=== PATIENT | female | born 1975 | race Hispanic/Latino ===

== ENCOUNTER 2016-10-16 22:12 | Emergency (ER) | payer OTHER ==
[~2016-10-16] VITALS: Ht 154.9 cm; Wt 81.6 kg
[~2016-10-16 22:12] MED LIST: ADVAIR HFA 230-12 GM INH; ADVAIR INH; ALBUTEROL SULFAT3 M1 INH; ATIVAN0.5 MG PO; CENTRUM1 TA1 PO; IBUPROFEN800 M1 PO; L-LYSINE1000 M1 PO; PRILOSEC 20MG C20 MG PO; PROAIR HFA8.5 GM INH; SERTRALINE HCL25 MG PO; SERTRALINE HYDR50 MG PO; TUMS500 MG PO; VENTOLIN H0.09 MG/Ac INH; [UNRECOGNIZED DRUG - OTHER] INH
--- NOTE | 2016-10-16 22:31 | ED CARDIAC/CP/PALPITATIONS ---
History of Present Illness General Chief Complaint: Chest Pain Stated Complaint: CHEST PRESSURE, "FEELS LIKE SOMETHING SITTING" Source: patient, old records Exam Limitations: no limitations Vital Signs & Intake/Output Vital Signs & Intake/Output Vital Signs Date Time Temp Pulse Resp B/P Pulse O2 O2 Flow FiO2 Ox Delivery Rate 10/16 2311 Room Air 10/16 2222 97.7 72 18 135/86 98 Room Air ED Intake and Output 10/17 0000 10/16 1200 Intake Total 50 Output Total Balance 50 Intake, IV 50 Patient 180 lb Weight Allergies Coded Allergies: latex (HIVES 03/15/16) Reconcile Medications Albuterol Sulfate (Proair Hfa) 8.5 GM HFA.AER.AD 2 PUF INH Q4-6 PRN PRN ASTHMA (Reported) Calcium Carbonate (Tums) 500 MG CTB 1 TAB PO PRN GI (Reported) Famotidine (Pepcid) 20 MG TABLET 1 TAB PO DAILY GASTRITIS Fluticasone Propionate/Salme (Advair Hfa 230-21 Mcg Inhaler) 12 GM HFA.AER.AD 2 PUFF INH BID ASTHMA (Reported) Ibuprofen 800 MG TABLET 1-2 TAB PO PRN MENSTRUAL CRAMPS (Reported) Lorazepam (Ativan) 0.5 MG TAB 1 TAB PO PRN ANXIETY (Reported) Lysine HCl (L-Lysine) 1,000 MG TABLET 1 TAB PO PRN SUPPLEMENT (Reported) Multivitamins (Centrum) 1 TAB TAB 1 TAB PO DAILY SUPPLEMENT (Reported) Sertraline HCl 25 MG TABLET 3 TAB PO DAILY PANIC DISORDER (Reported) Triage Note: PT TO ED C/O BURNING PAIN TO UPPER ABDOMEN THAT WENT UP INTO CENTER CHEST WHILE WATCHING TV IN BED "I THOUGHT I ATE TOO MUCH" C/O +NAUSEA AND DIZZINESS. "I CAN'T CATCH MY BREATH" PAIN WORSE WHEN SITTING AND WALKING. "IT FEELS LIKE SOMETHING IS SITTING ON MY CHEST" TOOK ATIVAN AND TUMS WITH NO RELIEF./ PMH OF ANXIETY Triage Nurses Notes Reviewed? yes Onset: Abrupt Duration: hour(s): (2), constant Timing: recent history Quality/Severity: moderate, aching Location: epigastric Radiation: substernal Activities at Onset: S/P EATING JR MAC AT [employer] Nitro Today/Relief: no nitro taken today Aspirin Today: no aspirin today Associated Symptoms: NAUSEA DYSPNEA : No Patient currently breastfeeds: No HPI: 41-year-old female with history of asthma and anxiety presents complaining of burning epigastric abdominal pain radiating substernally for the past 2 hours. The patient states that she had a miguel piggyback for [employer] earlier tonight and that while laying down in bed she began to have the symptoms. The patient states that she was feeling short of breath and was scared she was developing a panic attack for which she took one Ativan without improvement. She then took a Tums without subsequent improvement and came to the ER. She reports positive nausea however denies vomiting diarrhea. She denies any other abdominal pain no right upper quadrant pain and no back pain no cough fever or chills no sick contacts. Patient has been seen in the past for similar symptoms. The pain is not worse with inspiration no hemoptysis no leg pain no recent travel or immobility Past History Travel History Traveled to [place] past 21 day No Medical History Any Pertinent Medical History? see below for history Neurological: NONE EENT: NONE Cardiovascular: NONE Respiratory: asthma Gastrointestinal: GERD Hepatic: NONE Renal: NONE Musculoskeletal: NONE Psychiatric: anxiety Endocrine: NONE Surgical History Surgical History: N Psychosocial History What is your primary language Icelandic Tobacco Use: Quit >30 days ago ETOH Use: occasional use Illicit Drug Use: denies illicit drug use Family History Hx Contributory? No Review of Systems Review of Systems Constitutional: Reports: see HPI. All Other Systems: Reviewed and Negative Comments Review of systems: See HPI, All other systems negative. Constitutional, no chills no fever, no malaise HEENT: No visual changes no sore throat no congestion, Cardiovascular: chest pain , no palpitation Skin,no rashes, no change in skin Respiratory: dyspnea no cough no sputum GI: nausea no vomiting, no diarrhea, : No dysuria Muscle skeletal: No joint pain, no joint swelling, no back pain, no neck pain, Neurologic: No numbness no headache Psych: No stress no anxiety Heme/endocrine: No bruising no bleeding Immunology: No lymphadenopathy Physical Exam Physical Exam General Appearance: well developed/nourished, alert, awake Cardiovascular: regular rate/rhythm Comments: Well-developed well-nourished person in no acute distress HEENT: Normal EENT exam; PERRL, EOMI, HEAD is atraumatic. moist mucous membranes. Neck: Supple, normal range of motion Back: Nontender, no CVA tenderness. Full range of motion Cardiovascular: Regular rate and rhythms no murmurs rubs Respiratory: Chest tender.There were no bony deformities, no asymmetry. No respiratory distress. Patient speaking in full complete sentences. Breath sounds clear to auscultation bilaterally: NO W/R/R Abdomen: Soft, tender to palpation over the epigastrium, negative Rosales's sign and no right upper quadrant tenderness nondistended, no appreciable organomegaly. Normal bowel sounds. No rebound/guarding, Extremity: No edema, full range of motion of extremities Neuro: Alert oriented x3, motor sensory normal, There were no obvious focal neurologic abnormalities. Skin: No appreciable rash on exposed skin, skin is warm and dry. Psych: Mood and affect is normal, memory and judgment is normal. Core Measures ACS in differential dx? Yes Severe Sepsis Present: No Septic Shock Present: No All Positive = PERC Ruled Out: Positive: age < 50 years, heart rate < 100 bpm, O2 sat > 94%, no hemoptysis, no hormone use, no prior DVT or PE, no unilateral leg swellin, no surgery/trauma w/ in 4w. Progress Differential Diagnosis: AMI, aortic dissection, atrial fibrillation, cholecystitis, CHF/pulm edema, hypovolemia, musculoskeletal pain, myocarditis, pancreatitis, pericarditis, pneumonia, pneumothorax, pulmonary embolism, PUD/ GERD, PVCs/PACs, GASTRITIS, CHOLELITHIASIS Plan of Care: Orders Procedure Date/time Status Saline Lock 10/16 2240 Active Telemetry/Testing Engineer 10/16 2240 Active TROPONIN LEVEL 10/16 2240 Active LIPASE 10/16 2240 Active HUMAN BETA HCG SCREEN 10/16 2240 Active COMPREHENSIVE METABOLIC PANEL 10/16 2240 Active CBC WITHOUT DIFFERENTIAL 10/16 2240 Complete AMYLASE 10/16 2240 Active EKG 10/163 Active Laboratory Tests 10/16/16 2334: Anion Gap 10, Estimated GFR > 60, BUN/Creatinine Ratio 17.1, Glucose 103 H, Calcium 9.8, Total Bilirubin 0.4, AST 27, ALT 41, Alkaline Phosphatase 66, Troponin I Pending, Total Protein 7.2, Albumin 4.1, Globulin 3.1, Albumin/ Globulin Ratio 1.3, Amylase 57, Lipase 131, Total Beta HCG NEGATIVE, CBC w Diff NO MAN DIFF REQ, RBC 4.85, MCV 84.6, MCH 28.1, RDW 13.4, MPV 9.1, Gran % 70.1, Lymphocytes % 17.6 L, Monocytes % 7.9, Eosinophils % 4.0, Basophils % 0.4, Absolute Granulocytes 8.5 H, Absolute Lymphocytes 2.1, Absolute Monocytes 1.0 H, Absolute Eosinophils 0.5, Absolute Basophils 0, PUBS MCHC 33.3 10/16/16 2242: Troponin I Cancelled Labs ordered old records reviewed patient medicated with GI cocktail Zofran and Pepcid IV. Pain is reproducible over the epigastrium given patient recently eating [employer] prior to the episode beginning symptoms are consistent with a gastritis. PERC CRITERIA WELLS CRITERIA 0. Case discussed with Dr. Kemp will continue to monitor On repeat evaluation patient reports no improvement with GI cocktail 2340 PT reports to feeling improved with the pepcid, pending labs 10/17/2016 12:23:14 AM discussed with the patient at length all of her lab results to date she reports she is feeling improved resting comfortably normal sinus on the monitor On repeat evaluation patient reports symptoms have improved's cussed with her her repeat troponin and need for close follow-up with her primary care physician as well as GI. Prescription for Pepcid was provided she feels comfortable with this plan ([facility]) Initial ED EKG: NSR AT 80, NO ACUTE ST SEG CHANGES, NORMAL AXIS Prior EKG: unchanged (03/15/16) Departure Departure Disposition: HOME OR SELF CARE Condition: Stable Clinical Impression Primary Impression: Atypical chest pain Secondary Impressions: Gastritis Referrals: NATA HUANG,FERNANDO Paz (PCP/Family) Additional Instructions: BLAND DIET, PEPCID DIRECTED. FOLLOW UP WITH YOUR PRIMARY CARE PHYSICIAN AND RETAIL SHIFT SUPERVISOR THIS WEEK. RETURN AT ANYTIME SOONER WITH ANY CONCERNS Departure Forms: Customer Survey General Discharge Information Prescriptions: Current Visit Scripts Famotidine (Pepcid) 1 TAB PO DAILY #14 TAB Critical Care Note Critical Care Note Critical Care Time: non-applicable
[2016-10-16 23:43] LABS: ABSOLUTE BASOPHIL COUNT 0 /CUMM (0.0-0.2); ABSOLUTE EOSINOPHIL COUNT 0.5 /CUMM (0.0-0.7); ABSOLUTE GRANULOCYTE CT 8.5 /CUMM (1.4-6.5); ABSOLUTE LYMPH COUNT 2.1 /CUMM (1.2-3.4); BASOPHIL % 0.4 % (0.0-2.0); GRANULOCYTE % 70.1 % (42.2-75.2); MEAN CORPUSCULAR HGB 28.1 PG (27.0-31.0); MEAN CORPUSCULAR HGB CONC 33.3 G/DL (33.0-37.0); MEAN CORPUSCULAR VOLUME 84.6 FL (81.0-99.0); MEAN PLATELET VOLUME 9.1 FL (7.4-10.4); PLATELET COUNT 334 /CUMM (130-400); RBC DISTRIBUTION WIDTH 13.4 % (11.5-14.5); RED BLOOD CELL CT 4.85 /CUMM (4.20-5.40); WHITE BLOOD CELL COUNT 12.1 /CUMM (4.8-10.8)
[2016-10-17] MEDS ORDERED: PEPCID20 M1 PO (00:15)
[2016-10-17 00:37] VITALS: BP 116/64
== END 2016-10-17 00:38 ==
LOC: ERH 22:12
PROVIDERS: Physician Assistant Medical
DX: R07.89 Other chest pain (principal); K29.70 Gastritis, unspecified, without bleeding
CPT/HCPCS: 93005; 93010; 96374; 96375; J2405

== ENCOUNTER 2018-01-05 13:15 | Emergency (ER) | payer OTHER ==
[~2018-01-05] VITALS: Ht 154.9 cm; Wt 79.4 kg
[~2018-01-05 13:15] MED LIST changes: +ALBUTEROL2.5 MG/0.5 INH/SOL; +ATIVAN1 M1 PO; +CENTRUM ADULTS1 EACH PO; -CENTRUM1 TA1 PO; +DOCUSATE SODIU100 M3 PO; +PEPCID20 M1 PO; +PERCOCET 5-3251 EACH PO; +VITAMIN D31000 UNI1 PO
--- NOTE | 2018-01-05 13:27 | ED DYSPNEA/ASTHMA COMPLAINT ---
History of Present Illness General Chief Complaint: Wheezing/Asthma Stated Complaint: ASTHMA Source: patient, old records Exam Limitations: no limitations Vital Signs & Intake/Output Vital Signs & Intake/Output Vital Signs Date Time Temp Pulse Resp B/P B/P Pulse O2 O2 Flow FiO2 Mean Ox Delivery Rate 01/05 1426 98 Room Air 01/05 1426 98.0 80 20 120/80 98 Room Air 01/05 1341 98 01/05 1318 97.6 78 22 127/87 96 Room Air Allergies Coded Allergies: latex (HIVES 03/15/16) Reconcile Medications Albuterol Sulfate (Proair Hfa) 8.5 GM HFA.AER.AD 2 PUF INH Q4-6 PRN PRN ASTHMA (Reported) Cholecalciferol (Vitamin D3) (Vitamin D3) 1,000 UNIT CAPSULE 1 CAP PO DAILY SUPP (Reported) Docusate Sodium 100 MG CAPSULE 100 MG PO BID CONSTIPATION Fluticasone Propionate/Salme (Advair Hfa 230-21 Mcg Inhaler) 12 GM HFA.AER.AD 2 PUFF INH BID ASTHMA (Reported) Ibuprofen 800 MG TABLET 1-2 TAB PO PRN MENSTRUAL CRAMPS (Reported) Ipratropium/Albuterol Sulfate (Iprat-Albut 0.5-3(2.5) MG/3 Ml) 0.5 MG-3 MG (2.5 MG BASE)/3 ML AMPUL.NEB 3 ML INH Q6HR PRN WHEEZING LORazepam (Ativan) 1 MG TAB 1 TAB PO BID PANIC (Reported) Methylprednisolone. (Medrol) 4 MG TAB.DS.PK 1 DP PO AD asthma 6 on day 1 then reduce by one tablet daily until gone Multivitamin/Iron/Folic Acid (Centrum Adults Tablet) 18 MG IRON-400 MCG TABLET 1 TAB PO DAILY VITAMIN SUPPORT (Reported) Oxycodone HCl/Acetaminophen (Percocet 5-325 MG Tablet) 5 MG-325 MG TABLET 1 TAB PO Q4P PRN PAIN SCALE 7-10 (SEVERE) Sertraline HCl 25 MG TABLET 3 TAB PO DAILY PANIC DISORDER (Reported) Triage Note: REQUESTING EVALUATION SECONDARY TO DIFF BREATHING. AUDIBLE WHEEZING NOTED AT TRIAGE. HX OF ASTHMA. HAVING DIFFICULTY COMPLETING SENTENC ES Triage Nurses Notes Reviewed? yes Onset: Abrupt Duration: day(s): (2), constant Timing: recent history Severity: moderate Activities at Onset: none Prior Episodes/Possible Cause: frequent episodes Associated Symptoms: cough : No Patient currently breastfeeds: No HPI: 42-year-old female history of asthma presents to the ER for evaluation complaining of shortness of breath wheezing that she states she attributes to her allergies. She has history of similar episodes in the past. She's been using her inhaler and nebulizers without improvement. She just finished a course of prednisone for 5 days secondary to her allergies. There is a nonproductive cough, no fever no chills no chest pain abdominal pain nausea vomiting. Past History Travel History Traveled to [place] past 21 day No Medical History Any Pertinent Medical History? 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 No Review of Systems Review of Systems Constitutional: Reports: see HPI. Comments Review of systems: See HPI, All other systems negative. Constitutional, no chills no fever, HEENT: no sore throat no congestion, no ear pain Cardiovascular: No chest pain , no palpitation Skin: no rashes, no change in skin Respiratory: no cough no sputum GI: No nausea no vomiting, no diarrhea, Muscle skeletal: No joint pain, no back pain Neurologic: , no headache Heme/endocrine: No bruising Immunology: No lymphadenopathy Physical Exam Physical Exam General Appearance: well developed/nourished, awake Respiratory: decreased breath sounds, wheezing Comments: Well-developed well-nourished person in no acute distress HEENT: Normal EENT exam; PERRL, EOMI, HEAD is atraumatic. moist mucous membranes. Neck: Supple, normal range of motion Back: Nontender, no CVA tenderness. Full range of motion Cardiovascular: Regular rate and rhythms no murmur Respiratory: Mild respiratory distress. Patient speaking in full complete sentences. Breath sounds clear to auscultation bilaterally: NO W/R/R decreased breath sounds no wheezing no rhonchi no rales Extremity: No edema, full range of motion of extremities Neuro: Alert oriented x3, motor sensory normal, There were no obvious focal neurologic abnormalities. Skin: No appreciable rash on exposed skin, skin is warm and dry. Psych: Mood and affect is normal, memory and judgment is normal. Core Measures ACS in differential dx? No CVA/TIA Diagnosis No Sepsis Present: No Sepsis Focused Exam Completed? No Progress Differential Diagnosis: asthma, bronchitis, pneumonia Plan of Care: Patient feeling significantly improved after breathing treatment. I discussed with her plan of care she feels well and would like to go home. I will send her home with nebulizer medication AND Medrol Dosepak return precautions were discussed at length she feels comfortable with plan cleared for discharge Initial ED EKG: none Departure Departure Time of Disposition: 1410 Disposition: HOME OR SELF CARE Condition: Stable Clinical Impression Primary Impression: Asthma Referrals: Ivory HUANG,Amaury Paz (PCP/Family) Additional Instructions: DUONEB DIRECTED. medrol dose vijay as directed. follow up with your pmd and solar manufacturer's representative this week. return with any concerns Departure Forms: Customer Survey General Discharge Information Prescriptions: Current Visit Scripts Methylprednisolone. (Medrol) 1 DP PO AD #1 DP 6 on day 1 then reduce by one tablet daily until gone Ipratropium/Albuterol Sulfate (Iprat-Albut 0.5-3(2.5) MG/3 Ml) 3 ML INH Q6HR PRN WHEEZING #1 BOX Critical Care Note Critical Care Note Critical Care Time: non-applicable
[2018-01-05] MEDS ORDERED: IPRAT-ALBUT 0.5-3 ML INH (14:14)
[2018-01-05] MEDS ORDERED: MEDROL4 M2 PO (14:14)
[2018-01-05 14:26] VITALS: BP 120/80
== END 2018-01-05 14:27 ==
LOC: ERH 13:15
DX: J45.909 Unspecified asthma, uncomplicated (principal)
CPT/HCPCS: 1263